=== PATIENT | female | born 1960 | race Caucasian/White ===

== ENCOUNTER 2016-12-04 19:39 | Emergency (ER) | payer MEDICAID, OTHER ==
--- NOTE | 2016-12-04 19:56 | ED Physician Chart ---
Chief Complaint/HPI - Patient Information Date Seen:: 12/04/16 Time Seen:: 19:40 Chief Complaint:: Dyspnea History of Present Illness:: onset x 2 days of dyspnea, chest tightness type pleuritic chest pains, and cough ; no H/As, S/T, Neck Pain, Abd.pain, A/N/V/D/c, fever, chills, or urinary s/s Allergies:: Allergies Allergy/AdvReac Type Severity Reaction Status Date / Time No Known Allergies Allergy Verified 12/04/16 19:46 Vitals:: Vital Signs - 8 hr 12/04/16 19:40 Temp 97.3 F HR 102 RR 14 BP 151/96 O2 Sat % 97 Historian:: Patient Review:: Nurse's Note Reviewed Review of Systems - Review of Systems General/Constitutional: Fever, Chills, No weight loss, No weakness, No diaphoresis, No edema, No loss of appetite Skin: No skin lesions, No rash, No bruising Head: No headache, No light-headedness Eyes: No loss of vision, No pain, No diplopia ENT: No earache, No nasal drainage, No sore throat, No tinnitus Neck: No neck pain, No swelling, No thyromegaly, No stiffness, No mass noted Cardio Vascular: Chest pain, Palpitations, PND, orthopnea, No edema Pulmonary: SOB, Cough, No sputum, Wheezing GI: No nausea, No vomiting, No diarrhea, No pain, No melena, No hematochezia, No constipation, No hematemesis G/U: No dysuria, No frequency, No hematuria Seat Trimmer: No vaginal discharge, No abnormal vaginal bleed, No contraction Musculoskeletal: No bone or joint pain, No back pain, No muscle pain Endocrine: No polyuria, No polydipsia Psychiatric: No prior psych history, No depression, No anxiety, No suicidal ideation, No homicidal ideation, No auditory hallucination, No visual hallucination Hematopoietic: No bruising, No lymphadenopathy Allergic/Immuno: No urticaria, No angioedema Neurological: No syncope, No focal symptoms, No weakness, No paresthesia, No headache, No seizure, No dizziness, No confusion, No vertigo Past Medical History - Past Medical History Obtainable: Yes Past Medical History: HTN, CAD, Asthma/COPD, Dyslipidemia, Arthritis Family History: HTN Social History: Non Smoker, No Alcohol, No Drug Use, Single Surgical History: None Psychiatricy History: None Medication: Reviewed Family Medical History - Family Member Mother Ethnicity: Non- Physical Exam - Physical Examination General/Constitutional: Awake, Well-developed, well-nourished, Alert, No distress, GCS 15, Non-toxic appearing, Ambulatory Head: Atraumatic Eyes: Lids, conjuctiva normal, PERRL, EOMI Skin: Nl inspection, No rash, No skin lesions, No ecchymosis, Well hydrated, No lymphadenopathy ENMT: External ears, nose nl, Nasal exam nl, Lips, teeth, gums nl Neck: Nontender, Full ROM w/o pain, No JVD, No nuchal rigidity, No bruit, No mass, No stridor Respiratory: Nl effort/Exclusion Other Respiratory comments:: Lungs: + Rales and Rhonchi Cardio Vascular: RRR, No murmur, gallop, rubs, NL S1 S2 GI: No tenderness/rebounding/guarding, No organomegaly, No hernia, Normal BS's, Nondistended, No mass/bruits, No McBurney tenderness : No CVA tenderness Extremities: No tenderness or effusion, Full ROM, normal strength in all extremities, No edema, Normal digits & nails Neuro/Psych: Alert/oriented, DTR's symmetric, Normal sensory exam, Normal motor strength, Judgement/insight normal, Mood normal, Normal gait, No focal deficits Misc: normal gait, Normal back, No paraspinal tenderness Labs/Radiology/EKG Results - Lab Results Results: unremarkable - Radiology Results Results: + Infiltrates; CHF - EKG Interpretations EKG Time:: 20:50 Rate & Rhythm: 80; NSR Comments:: Old ASMI; T-Wave Inversions ED Septic Shock - . Is Septic Shock (SBP<90, OR Lactate>4 mmol\L) present?: No - <6hrs of presentation: Vital Signs: Vital Signs - 8 hr 12/04/16 19:40 Temp 97.3 F HR 102 RR 14 BP 151/96 O2 Sat % 97 Reassessment (Disposition) - Reassessment Reassessment Condition:: Improved - Diagnosis Diagnosis:: Chest Pain; Myocardial Ischemia; Unstable Angina; Angina Pectoris; PNA; CHF; Dyspnea; HTN; Sepsis - Aftercare/Follow up Instructions Aftercare/Follow-Up Instructions:: Counseled pt regarding lab results/diagnosis & need follow up, Counseled pt & family regarding lab results/diagnosis & need follow up - Patient Disposition Discharge/Transfer:: Acute Care w/in this hosp Accepting Physician:: Dr. Ann Time Called:: 2199 Time Responded:: 22:00 Admitted to:: Telemetry Spoke to:: Dr. Ann Admitting Medical Physician:: Dr. Ann Condition at Disposition:: Stable, Improved
[2016-12-04 20:43] LABS: % BASOPHILS 0.5 % (0.0-2.0); % EOSINOPHILS 0.5 % (0.0-5.0); % LYMPHOCYTES 12.7 % (20.0-50.0); % MONOCYTES 4.9 % (2.0-10.0); % NEUTROPHILS 81.4 % (40.0-80.0); HEMATOCRIT 45.2 % (35.0-45.0); MEAN CORPUSCULAR HEMOGLOBIN 27.3 pg (27.0-31.0); MEAN CORPUSCULAR HGB CONC 33.2 pg (28.0-36.0); MEAN PLATELET VOLUME 8.5 fl; NEUTROPHILE ABSOLUTE 7.8 Th/cmm (1.8-8.0); PLATELET COUNT 182 Th/cmm (150-400); RED BLOOD COUNT 5.52 Mil/cmm (3.80-5.10); RED CELL DISTRIBUTION WIDTH 12.8 % (11.5-20.0); WHITE BLOOD COUNT 9.5 Th/cmm (4.8-10.8)
[2016-12-04 20:56] LABS: INR 0.95 (0.5-1.4); PROTHROMBIN TIME (TEST) 9.9 SECONDS (9.5-11.5)
[2016-12-04 20:59] LABS: TROP I 0.01 ng/mL (0.01-0.05)
[2016-12-04 21:00] LABS: ALB/GLOB RATIO 1.2 (1.0-1.8); ALKALINE PHOSPHATASE 153 U/L (34-104); ANION GAP 9.6 (7.0-16.0); BILIRUBIN,TOTAL 0.3 mg/dL (0.3-1.0); BUN - UREA NITROGEN 15 mg/dL (7-25); BUN/CREATININE RATIO 21.4; CALCIUM SERUM 9.6 mg/dL (8.6-10.3); CARBON DIOXIDE 24.3 mEq/L (21.0-31.0); CHLORIDE 105 mEq/L (98-107); CHOLESTEROL 169 mg/dL (<200); CREATININE - SERUM 0.7 mg/dL (0.6-1.2); GLUCOSE 125 mg/dL (70-105); POTASSIUM SERUM 3.9 mEq/L (3.5-5.1); SGOT 18 U/L (13-39); SGPT/ALT 14 U/L (7-52); SODIUM SERUM 135 mEq/L (136-145); TRIGLYCERIDES 156 mg/dL (<150)
[2016-12-04 21:09] LABS: BNP 67.3 pg/mL (5.0-100.0)
[2016-12-04] MEDS ORDERED: Levofloxacin 500mg/100mL 500 MG/100 ML BAG IV ONE ×2 (22:01→22:05)
[2016-12-04] MEDS ORDERED: Aspirin 81mg Chewable Tab PO STA (22:04)
[2016-12-04] MEDS ORDERED: NITROGLYCERIN OINT 2% 1 INCH PACKET TP STA (22:04)
[2016-12-04] MEDS ORDERED: Aspirin 81mg Chewable Tab ONE (23:08)
[2016-12-04] MEDS ORDERED: NITROGLYCERIN OINT 2% 1 INCH PACKET TP ONE (23:09)
--- NOTE | 2016-12-05 09:32 | Diagnostic Imaging Report ---
Portable chest x-ray History: Shortness of breath Allowing for portable technique the heart size is normal. No focal pulmonary parenchymal processes. No hilar or mediastinal abnormalities. Impression: No acute abnormalities.
== END 2016-12-04 23:15 | disposition short-term general hospital (02) ==
LOC: ER 19:39
DX: I25.9 Chronic ischemic heart disease, unspecified (principal); I20.0 Unstable angina; I20.9 Angina pectoris, unspecified; I11.0 Hypertensive heart disease with heart failure; I50.9 Heart failure, unspecified; A41.9 Sepsis, unspecified organism; R07.81 Pleurodynia; J44.9 Chronic obstructive pulmonary disease, unspecified; J45.909 Unspecified asthma, uncomplicated; E78.5 Hyperlipidemia, unspecified
CPT/HCPCS: 99285; 96365; 96375; 93005; 71010; 84484; 83880; 36415; 85379; 83605; 85025; 85610; 85730; 82550; 84703; 80053; 80061; 87081; 87040 ×2; J1956; 94760; J1940; Z7610